=== PATIENT | female | born 1995 | race Caucasian/White ===

== ENCOUNTER → 2018-11-11 | Outpatient (REF) | payer BC ==
[2018-11-11 20:09] LABS: PLATELET COUNT, AUTOMATED 240 K/uL (150-450)
== END ==
PROVIDERS: ATTEND Family Medicine
DX: R07.9 Chest pain, unspecified (principal)
CPT/HCPCS: 82040; 82247; 82310; 82374; 82435; 82565; 82947; 84075; 84132; 84155; 84295; 84450; 84460; 84520; 85025

== ENCOUNTER → 2018-11-12 | Outpatient (CLI) | payer BC ==
[~2018-11-12] MED LIST: IOPAMIDOL 76% 150 ML INFUS BTL 150 ML ONE; NS(*) 0.9% 50 ML BAG 50 ML ONE
--- NOTE | 2018-11-12 10:33 | RADIOLOGY IMAGING REPORT ---
FACILITY: [facility] [place] PATIENT NAME: Veronika Shell : 1995 MR: [id number] V: [id number] EXAM DATE: ORDERING PHYSICIAN: MARCIA NEELY TECHNOLOGIST: Location: [facility] Patient: Veronika Shell : 1995 Visit/Account:[id number] Date of Sevice: 11/12/2018 CT CTA CHEST W & W/O CON HISTORY: History of bronchitis. Shortness of breath and cough. TECHNIQUE: CTA chest with intravenous contrast attention to pulmonary arteries. Sagittal, coronal a nd slab 3D MIP coronal reconstructed images were also created for further evaluation and interpretati on. One of the following dose optimization techniques was utilized in the performance of this exam: Autom ated exposure control; adjustment of the mA and/or kV according to the patient's size; or use of an i terative reconstruction technique. Specific details can be referenced in the facility's radiology CT exam operational policy. CONTRAST: 75 mL Isovue-370. COMPARISON: None. FINDINGS: Heart/vessels: Satisfactory opacification of the pulmonary arteries without visualized pulmonary emb olus. Mediastinum: Mild patulous esophagus. Otherwise negative. Lymph nodes: Borderline prominent mediastinal and hilar lymph nodes, likely reactive. For example, a distal right paratracheal lymph node measures approximately 2 x 1.1 cm. Lungs/pleura: Subtle tree-in-bud type nodular opacities within the left lower lobe. Visualized upper abdomen: Negative. Bones/soft tissues: Negative. IMPRESSION: 1. No acute findings. Negative for pulmonary embolus. 2. Subtle tree-in-bud type nodular opacities within the left lower lobe. The size of opacities are typically related to small airways infectious processes including fungal and atypical etiologies. 3. Mediastinal and hilar lymphadenopathy, likely reactive. Report Dictated By: Rudy Drummond MD at 11/12/2018 10:18 AM Report E-Signed By: Rudy Drummond MD at 11/12/2018 10:29 AM WSN:[email or web address]
== END ==
LOC: CT 08:53
PROVIDERS: ATTEND Family Medicine
DX: R91.8 Other nonspecific abnormal finding of lung field (principal)
CPT/HCPCS: 71275; J7050; Q9967